=== PATIENT | female | born 1985 | race Caucasian/White ===

== ENCOUNTER 2016-08-09 17:45 | Emergency (ER) | payer OTHER ==
--- NOTE | 2016-08-09 19:34 | ED.PDOC ---
History of Present Illness - General Chief Complaint: Dental/Mouth Stated Complaint: dental pain Time Seen by Provider: 08/09/16 19:21 Source: patient Exam Limitations: no limitations - History of Present Illness Initial Comments: Ms. Kahtleen Maloney 31 y/o female stated that for the last 2 days she had been having dull aches left side of face denies history of trauma,painful to chew on right side.No fever no chills no earache no nose pain Has appointment with dentist next week. Timing/Duration: gradual, other - 2 days ago EENT Location: other - right upper and lower jaw Prearrival Treatment: no prearrival treatment Improving Factors: rest Worsening Factors: eating Associated Symptoms: denies symptoms Allergies/Adverse Reactions: Allergies NO KNOWN ALLERGY Allergy (Verified 08/09/16 18:43) Home Medications: Ambulatory Orders Diclofenac Sodium [Diclofenac Sodium Dr] 75 mg PO BID #20 tab 08/09/16 Review of Systems - Review of Systems Constitutional: States: no symptoms reported EENTM: States: see HPI Respiratory: States: no symptoms reported Cardiology: States: no symptoms reported Gastrointestinal/Abdominal: States: no symptoms reported Genitourinary: States: no symptoms reported Musculoskeletal: States: no symptoms reported Skin: States: no symptoms reported Neurological: States: no symptoms reported Endocrine: States: no symptoms reported Hematologic/Lymphatic: States: no symptoms reported Past Medical History (General) - Patient Medical History Hx Asthma: No Surgical History: other - Vaccination History Hx Tetanus, Diphtheria Vaccination: No Hx Influenza Vaccination: No - Social History Hx Tobacco Use: Yes Hx Alcohol Use: Yes - occasional Hx Substance Use: No Hx Substance Use Treatment: No Hx Depression: No - Activities of Daily Living Hospice Agency (if applicable):: None - Female History Patient is a Female of Child Bearing Age (10 -59 yrs old): Yes Patient : No Family Medical History - Family History Mother Family History: Unknown Living Status: Unknown Hx Family Cancer: Yes - melanoma,cervical cancer Physical Exam - Physical Exam General Appearance: Alert, Comfortable, No apparent distress Eye Exam: bilateral normal Ear Exam: bilateral ear: auricle normal, canal normal, TM normal Nasal Exam: normal inspection Throat Exam: normal mouth inspection, pharynx normal, other - tenderness right TMJ AREA no swelling noted gums,dental caries upper molar Neck: non-tender, full range of motion, supple Cardiovascular/Respiratory: regular rate, rhythm, no M/R/G, normal peripheral pulses, no JVD, normal breath sounds Abdominal Exam: non-tender, no organomegaly Neurologic: no motor/sensory deficits, alert, normal mood/affect, oriented x 3 Skin Exam: normal color, warm/dry Departure - Departure Clinical Impression: TMJ capsulitis Time of Disposition: 19:39 Disposition: Discharge to Home or Self Care Condition: Good Departure Forms: ED Discharge - Pt. Copy, Patient Portal Self Enrollment Instructions: DI for Temporomandibular Disorder, TMJ Syndrome (Alternative Therapy), Temporomandibular Disorder Diet: other - soft diet until better Referrals: Nik Carlin MD [Primary Care Provider] - 1-2 Weeks Prescriptions: Diclofenac Sodium [Diclofenac Sodium Dr] 75 mg PO BID #20 tab Home Medications: Ambulatory Orders Diclofenac Sodium [Diclofenac Sodium Dr] 75 mg PO BID #20 tab 08/09/16 Additional Instructions: KEEP APPOINTMENT WITH DENTIST NEXT WEEK
[2016-08-09] MEDS ORDERED: HYDROCOD/APAP 7.5/325 (ER DISP) #3 TAB PO ONE (19:40)
[2016-08-09 20:01] VITALS: O2SAT 99
[2016-08-09 20:02] VITALS: BP 134/82; TEMP 97.9
== END 2016-08-09 20:02 | disposition home or self-care (01) ==
LOC: ER 17:45
DX: M26.69 Other specified disorders of temporomandibular joint (principal); Z87.891 Personal history of nicotine dependence

== ENCOUNTER 2020-01-28 21:47 | Emergency (ER) | payer OTHER, SELFPAY ==
[2020-01-28] MEDS ORDERED: SODIUM CHLORIDE 0.9% 1000ML 1,000 ML IVS PRN ×2 (22:00→23:55)
[2020-01-28] MEDS ORDERED: ONDANSETRON INJ 4 MG/2 ML VIAL IV ONE ×2 (22:00→23:25)
[2020-01-28 22:02] VITALS: TEMP 97.3
--- NOTE | 2020-01-28 22:02 | ED.PDOC ---
History of Present Illness - General Chief Complaint: GI Problem Time Seen by Provider: 01/28/20 21:51 Information Source: patient, RN notes reviewed, Vital Signs reviewed, old records Exam Limitations: no limitations - History of Present Illness Initial Comments: 34 yo F with no pmh comes in with the c/c of n/v/d and abdominal pain. States has had diarrhea for the past 2 weeks. States it looks green in color. A few days ago developed n/v. can't keep anything down. Is having abdominal cramps. no dysuria, no fever, no recent antibiotics. no recent travel. Review of Systems - Review of Systems Constitutional: Denies: chills, fever EENTM: Denies: blurred vision, double vision, ear discharge Respiratory: Denies: cough, short of breath Cardiology: Denies: chest pain, palpitations Gastrointestinal/Abdominal: States: abdominal pain, diarrhea, nausea, vomiting Genitourinary: Denies: discharge, frequency, hematuria Skin: Denies: change in color, lesions Neurological: Denies: headache, numbness, paresthesia, seizure Endocrine: Denies: unexplained weight gain, unexplained weight loss Hematologic/Lymphatic: Denies: easy bleeding, easy bruising Past Medical History (General) - Patient Medical History Hx Asthma: No Hx of COPD: No Hx Cardiac Disorders: No Hx Congestive Heart Failure: No Surgical History: other - btl - Vaccination History Hx Tetanus, Diphtheria Vaccination: No Hx Influenza Vaccination: No - Social History Hx Tobacco Use: Yes Hx Alcohol Use: Yes - occasional Hx Substance Use: No Hx Substance Use Treatment: No Hx Depression: No - Female History Patient is a Female of Child Bearing Age (10 -59 yrs old): Yes Hx Last Menstrual Period: 01/21/20 Patient : No Family Medical History - Family History Mother Family History: Unknown Living Status: Unknown Hx Family Cancer: Yes - melanoma,cervical cancer Physical Exam - Physical Exam General Appearance: Alert, Comfortable, No apparent distress, Well Developed, Well Groomed, Well Hydrated, Well Nourished, Other Eyes, Ears, Nose, Throat Exam: PERRL/EOMI, normal ENT inspection, TMs normal Neck: non-tender, full range of motion, supple, normal inspection Respiratory: chest non-tender, lungs clear, normal breath sounds, no respiratory distress, no accessory muscle use Cardiovascular/Chest: normal peripheral pulses, regular rate, rhythm, no edema, no gallop, no JVD, no murmur Peripheral Pulses: 2+ Gastrointestinal/Abdominal: normal bowel sounds, non tender, soft, no o rganomegaly, no pulsatile mass Rectal Exam: deferred Back Exam: normal inspection, no CVA tenderness, no vertebral tenderness Extremity: normal range of motion, non-tender, normal inspection, no pedal edema, no calf tenderness, normal capillary refill Neurologic: [employer] II-XII nml as tested, no motor/sensory deficits, alert, normal mood/affect, oriented x 3 Skin Exam: normal color, warm/dry Progress - Progress Progress: Partial ddx: Gastroenteritis, pancreatitis, COVID, influenza, AIP, UTI/stone. patient given 4 mg zofran, IVF, toradol. Patient continues to feel nauseated. will give phenergan IV. calculated anion gap 17. CT showed some fat stranding on medial left gluteal region. Exam area, no evidence of infection, induration, erythema or trauma. 01/29/20 00:47 pain resolved. Patient tolerating PO. The data reviewed when caring for this patient included: nurse notes, prior records, etc. The history and assessments from nurses notes were reviewed and considered, and the patient's home medication list was also reviewed and considered. My assessment and the results of testing completed here in the ED were discussed with the patient/family. All questions were answered, and they express understanding of my assessment and the plan. They have been instructed to return if their symptoms worsen, and have been asked to follow up with their primary care physician to recheck today's presenting complaint. Strict return precautions given. I have reviewed medication, benefits, alternatives and side effects. Patient decided to proceed with medication.patient discharged home in stable condition. Kenyetta Cm DO #[id number] 01/29/20 00:49 - Results/Orders Results/Orders: 01/28/20 22:00 Sodium Chloride 0.9% 1000ML [Ns 1000 ml] 1,000 ml IVS STAT 01/28/20 22:03 URINALYSIS Stat 01/28/20 22:37 Abdoment/Pelvis w/o Contrast [CT] Stat 01/28/20 23:23 INFLUENZA A & B BY PCR Stat RAPID SARS-CoV-2 RNA Stat Laboratory Results WBC 10.8 K/mm3 (4.8-10.8) 01/28/20 22:18 RBC 5.54 M/mm3 (4.20-5.40) H 01/28/20 22:18 Hgb 17.0 gm/dL (12.0-16.0) H 01/28/20 22:18 Hct 48.2 % (36.0-47.0) H 01/28/20 22:18 MCV 87.0 fl (81.0-99.0) 01/28/20 22:18 MCH 30.7 pg (27.0-31.0) 01/28/20 22:18 MCHC 35.3 g/dL (33.0-37.0) 01/28/20 22:18 RDW 12.7 % (11.5-14.5) 01/28/20 22:18 Plt Count 279 K/mm3 (130-400) 01/28/20 22:18 MPV 7.9 fl (7.40-10.4) 01/28/20 22:18 Absolute Neuts (auto) 8.50 K/uL (1.8-6.8) H 01/28/20 22:18 Absolute Lymphs (auto) 1.30 K/uL (1.0-3.4) 01/28/20 22:18 Absolute Monos (auto) 0.80 K/uL (0.2-0.8) 01/28/20 22:18 Absolute Eos (auto) 0.10 K/uL (0.0-0.4) 01/28/20 22:18 Absolute Basos (auto) 0.10 K/uL (0.0-0.1) 01/28/20 22:18 Neutrophils % 78.7 % (42.0-78.0) H 01/28/20 22:18 Lymphocytes % 12.4 % (20.0-50.0) L 01/28/20 22:18 Monocytes % 7.1 % (2.0-9.0) 01/28/20 22:18 Eosinophils % 0.6 % (1.0-5.0) L 01/28/20 22:18 Basophils % 1.2 % (0.0-2.0) 01/28/20 22:18 Sodium 141 mmol/L (135-145) 01/28/20 22:18 Potassium 3.8 mmol/L (3.6-5.0) 01/28/20 22:18 Chloride 99 mmol/L (101-111) L 01/28/20 22:18 Carbon Dioxide 25 mmol/L (21-31) 01/28/20 22:18 Anion Gap 20.8 (12-18) H 01/28/20 22:18 BUN 19 mg/dL (7-18) H 01/28/20 22:18 Creatinine 0.85 mg/dL (0.6-1.3) 01/28/20 22:18 BUN/Creatinine Ratio 22.4 (10-20) H 01/28/20 22:18 Random Glucose 119 mg/dL (70-105) H 01/28/20 22:18 Serum Osmolality 284.7 mOsm/L (275-295) 01/28/20 22:18 Calcium 9.8 mg/dL (8.4-10.2) 01/28/20 22:18 Total Bilirubin 1.2 mg/dL (0.2-1.0) H 01/28/20 22:18 AST 25 IU/L (10-42) 01/28/20 22:18 ALT 26 IU/L (10-60) 01/28/20 22:18 Alkaline Phosphatase 52 IU/L (42-121) 01/28/20 22:18 Serum Total Protein 8.5 gm/dL (6.4-8.2) H 01/28/20 22:18 Albumin 5.1 g/dl (3.2-5.5) 01/28/20 22:18 Globulin 3.4 gm/dL (2.3-3.5) 01/28/20 22:18 Albumin/Globulin Ratio 1.5 (1.1-1.9) 01/28/20 22:18 Lipase 23 U/L (22-51) 01/28/20 22:18 Serum HCG, Qual Negative (NEGATIVE) 01/28/20 22:18 Departure - Departure Clinical Impression: Acute diarrhea, Dehydration Abdominal pain Qualifiers: Abdominal location: generalized Qualified Code(s): R10.84 - Generalized abdominal pain Time of Disposition: 00:44 Disposition: Discharge to Home or Self Care Departure Forms: ED Discharge - Pt. Copy, Patient Portal Self Enrollment Instructions: Viral Gastroenteritis, [place] Diet, Nausea and Vomiting, Adult (DC) Diet: bland diet Activity: increase activity as tolerated Prescriptions: Promethazine HCl 25 mg PO TID PRN #15 tab PRN Reason: Nausea/Vomiting Home Medications: Ambulatory Orders Diclofenac Sodium [Diclofenac Sodium Dr] 75 mg PO BID #20 tab 08/09/16 Promethazine HCl 25 mg PO TID PRN #15 tab 01/29/20
[2020-01-28] MEDS ORDERED: PROMETHAZINE HCL INJ 12.5 MG in SODIUM CHLORIDE 0.9% 50ML 50 ML IVPB ONE (22:36)
[2020-01-28] MEDS ORDERED: KETOROLAC TROMETHAMINE INJ 30 MG/ML VIAL IV ONE (23:11)
--- NOTE | 2020-01-28 23:27 | CT ---
EXAM DESCRIPTION: Abdoment/Pelvis w/o Contrast CLINICAL HISTORY: abd pain lower, n/v COMPARISON: None Available. TECHNIQUE: Contiguous axial images of the abdomen and pelvis were obtained followed by reconstruction images. This exam was performed according to our departmental dose-optimization program, which includes automated exposure control, adjustment of the mA and/or kV according to patient size and/or use of iterative reconstruction technique. FINDINGS: The liver, spleen, pancreas and kidneys are grossly normal on noncontrast study. There is no hydronephrosis or renal stones. The gallbladder is unremarkable by CT criteria. Adrenal glands are within normal limits. Aorta is of normal caliber and tapering. There is no free fluid in the abdomen or pelvis. There is no bowel obstruction. There is no stranding of the mesenteric fat to suggest an inflammatory response. The appendix is within normal limits and visualized on images 111 through 123 and coronal images 46 through 53. There is no pericecal inflammation. The uterus and ovaries are grossly normal. There is a small amount of subcutaneous stranding in the medial left buttock images 155 through 161 of uncertain etiology. This may be an incidental finding. Alternatively, recommend correlation with history of trauma. Early infectious process would be difficult to completely exclude. The inferior extent is excluded from imaging and the lack of intravenous contrast is slightly limiting. IMPRESSION: Subcutaneous stranding medial left buttock as discussed above. Incidental finding versus traumatic or infectious etiology.. Electronically signed by: Audrey Neff MD 01/28/2020 11:26 PM CDT
[2020-01-29] MEDS ORDERED: MORPHINE SULFATE INJ 10 MG/ML VIAL IV ONE (00:33)
[2020-01-29] MEDS ORDERED: ONDANSETRON ODT (ER DISP) 8 MG TAB PO ONE (00:45)
[2020-01-29 00:56] VITALS: BP 106/66; O2SAT 96
== END 2020-01-29 00:54 | disposition home or self-care (01) ==
LOC: ER 21:47
DX: E86.0 Dehydration (principal); R19.7 Diarrhea, unspecified; Z87.891 Personal history of nicotine dependence
CPT/HCPCS: 36415; 74176; 80053; 83605; 83690; 84703; 85025; 87502; 87635; A4216; J1885; J2270; J2405; J2550; J7030